=== PATIENT | female | born 1965 | race African-American/Black ===

== ENCOUNTER 2019-10-02 11:14 | Inpatient (IN) | payer OTHER ==
[~2019-10-02] VITALS: Ht 165.1 cm; Wt 114.8 kg
[2019-10-02 11:26] VITALS: BP 120/80
--- NOTE | 2019-10-02 11:40 | NUR ---
PT C/O WOUND TO LEFT BREAST WITH PAIN AND YELLOWISH DRAINAGE X 1 MONTH. PT REPORTS HAVING LEFT BREAT CANCER BUT HAVEN'T RECEIVED CHEMOTHERAPY YET. DENIES FEVER, CHILLS, OR OTHER DISCOMFORTS AT THIS TIME. PATIENT STATES PAIN OF 10/10 AT THIS TIME; VSS; PATIENT POSITIONED FOR COMFORT; HOB ELEVATED; BEDRAILS UP X1; BED DOWN. ER MD MADE AWARE OF PT STATUS. FAMILY MEMBER IS AT BEDSIDE.
--- NOTE | 2019-10-02 12:46 | NUR ---
PT REFUSES ALL NO BLOOD TRANSFUSIONS DUE TO HINDU REASONS.
[2019-10-02] MEDS ORDERED: GLIM2TAB PO (12:49)
[2019-10-02] MEDS ORDERED: COLC0.6C PO (12:49)
[2019-10-02] MEDS ORDERED: NIFE90TE4 PO (12:49)
[2019-10-02] MEDS ORDERED: HYDR2TAB6 PO (12:49)
[2019-10-02] MEDS ORDERED: FEBU80TA PO (12:49)
[2019-10-02] MEDS ORDERED: LID5T TP (12:49)
[2019-10-02] MEDS ORDERED: HYDR-39 PO (12:49)
--- NOTE | 2019-10-02 13:03 | NUR ---
PT HAS RIGHT SUPRACLAVICULAR PORTACATH AND SKIN IS INTACT.
[2019-10-02 13:10] LABS: PROTHROMBIN TIME 11.1 secs (10.8-13.4)
[2019-10-02 13:12] LABS: BASOPHILS # (AUTO) 0.1 K/uL (0.00-0.22); BASOPHILS % (AUTO) 0.6 % (0.0-2.0); HEMATOCRIT 26.6 % (36-48); HEMOGLOBIN 8.1 g/dL (12.0-16.0); LYMPHOCYTES # (AUTO) 1.6 K/uL (2.5-16.5); LYMPHOCYTES % (AUTO) 9.5 % (20.5-51.1); MEAN CORPUSCULAR HEMOGLOBIN 25 pg (27-31); MEAN CORPUSCULAR HGB CONC 31 g/dL (33-37); MONOCYTES # (AUTO) 1.5 K/uL (0.8-1.0); MONOCYTES % (AUTO) 8.7 % (1.7-9.3); NEUTROPHILS # (AUTO) 13.7 K/uL (1.8-7.7); NEUTROPHILS % (AUTO) 81.2 % (42.2-75.2); PLATELET COUNT (AUTO) 358 K/uL (140-450); RED BLOOD CELL COUNT(AUTO) 3.32 MIL/uL (4.20-5.40); WHITE BLOOD COUNT (AUTO) 16.8 K/uL (4.8-10.8)
[2019-10-02 13:17] LABS: ALBUMIN 2.5 g/dL (3.4-5.0); ANION GAP 15.7 (8-16); CARBON DIOXIDE 23.2 mmol/L (21-32); CREATININE 1.3 mg/dL (0.6-1.3); POTASSIUM 3.9 mmol/L (3.5-5.1); TOTAL BILIRUBIN 0.5 mg/dL (0.0-1.0)
[2019-10-02 15:05] VITALS: BP 115/76
--- NOTE | 2019-10-02 15:05 | NUR ---
PT BROUGHT IN [facility] FROM ER ACCOMPANIED BY ER NURSE KLAUDIA. DAUGHTER WILBER MEADE AT BEDSIDE. PT SETTLED INTO BED AND POSITIONED PT COMFORTABLY. RESPIRATIONS EVEN AND UNLABORED ON RA WITH NO SOB OR RESPIRATORY DISTRESS. PT DENIED SOB, PAIN, AND NAUSEA AT THIS TIME. NO SIGNS OF DISTRESS NOTED. R SUPRACLAVICULAR PROTACATH NOTED, CLEAN AND DRY, NOT INFUSING THIS TIME. L BREAST WOUND NOTED, COVERED WITH DRESSING, CLEAN AND DRY. PATIENT IS CONTINENT AND ABLE TO USE BEDSIDE COMMODE WITH ASSISTANCE. PT IS UNABLE TO AMBULATE AND USE WHEELCHAIR AT HOME. ORIENTED PT AND DAUGHTER WILBER TO THE ROOM, DEMONSTRATED ON HOW TO USE THE CALL LIGHT, BED REMOTE, TV, LIGHTS, TELEPHONE, AND PT VERBALIZED OK. UPDATED BOARD. VITAL SIGNS TAKEN AND RESULTED IN: T-97.3, SPO2- 98%, RR-17, HR-112, BP-115/76, PAIN 0. MRSA NARES COLLECTED. ENDS DOWN CHECKER IS ASSISTING PT TO CHANGE INTO YELLOW GOWN, SOCK. AND WRIST BAND. APPLIED ALLERGY RED ARM BAND. PATIENT IS AWAKE AND TALKING TO DAUGHTER AT BEDSIDE. SAFETY MEASURES IN PLACE. FALL RISK PROTOCOL INITIALED AND BED ALARM ACTIVATED. INSTRUCTED PT AND DAUGHTER WILBER TO USE THE CALL LIGHT FOR ANY ASSISTANCE AND BOTH AWARE.
--- NOTE | 2019-10-02 15:05 | NUR ---
Patient will be admitted to care of breast CA. Admited to Med-surg. Will go to room 120B. Belongings list completed. Report to RAMIRO Brush.
--- NOTE | 2019-10-02 15:40 | NUR ---
OBTAINED PROCEDURE CONSENT, PATIENT WAS AWARE OF PROCEDURE AND WILL BE NPO AFTER MIDNIGHT. PT STATED "I DO NOT WANT ANY BLOOD TRANSFUSION AND THE DOCUMENT IS ALSO IN MY CHART." WILL ENDORSED INFORMATION TO ONCOMING SHIFT NURSE WELL. DAUGHTER IS BY BEDSIDE. NO SIGNS OF DISTRESS NOTED. SAFETY MEASURES IN PLACE. BED IN LOW POSITION AND CALL LIGHT WITHIN REACH. INSTRUCTED PT TO USE THE CALL LIGHT FOR ANY ASSISTANCE AND PT AWARE.
--- NOTE | 2019-10-02 15:56 | NUR ---
DC PLANNING 54 YRS OLD FEMALE PT WAS ADMITTED FROM HOME WITH A DX OF BREAST CA . PT HAS A HX OF BREAST CA WAS RECEIVING A TREATMENT AT [facility]. DR SALGADO CONSULTED FOR POSSIBLE MASTECTOMY AND REPRODUCTION MACHINE LOADER CONSULT FOR PRE-OP EVAL DC PLAN TO GO HOME PER MD RECOMMENDATION. CM TO FOLLOW Addendum: 10/03/19 at 1144 by Tessa Gutierrez CM DC PLANNING SEEN BY DR SALGADO, SCHEDULE SURGERY FOR LEFT BREAST MASTECTOMY IN THE AFTERNOON DR ROSE(REPRODUCTION MACHINE LOADER ) TO SEE PT FOR CARDIAC SURGERY . CM TO FOLLOW. Addendum: 10/03/19 at 1631 by Tessa Gutierrez CM DC PLANNING F/U APPOINTMENT MADE WITH PCP DR LOZANO, [id number] [phone] [address]ESS [address] [place] [address] ON OCT 29, 2019 AT 2:30 PM APPOINTMENT REMINDER GIVEN TO THE PATIENT.
--- NOTE | 2019-10-02 16:15 | NUR ---
ASSESSED WOUND ON L BREAST. CLEANSED WOUND WITH NS, PAD DRY AND APPLIED ABD AND GAUZE, SECURED WITH PAPER TAPE. PT TOLERATED WELL. WOUND CARE ED PROVIDED AND PT VERBALIZED UNDERSTANDING. PT AWAKE AND TALKING TO DAUGHTER WILBER AT BEDSIDE. NO SIGNS OF DISTRESS NOTED.
--- NOTE | 2019-10-02 17:03 | NUR ---
PT IS IN ECHOCARDIOGRAM AND KRISTAN ABBASI IS BY BEDSIDE. NO SIGNS OF DISTRESS NOTED. DAUGHTER WILBER IS ALSO BY BEDSIDE. SAFETY MEASURES IN PLACE.
--- NOTE | 2019-10-02 17:20 | NUR ---
RECEIVED CALL FROM DR. ESSENCE JONES WITH THE FOLLOWING ORDERS: 1800 [address], NPO AFTER MIDNIGHT, ACCUCHECK ACHS, VANCOMYCIN PHARMACY TO DOSE, ZOSYN 3.475 IV Q8H, TYLENOL 1600 MG PRN Q4H, CBC AND CHEM 7 IN AM, IV HALF NS 85ML/HR TO START AT MIDNIGHT. REPEATED ORDER BACK TO [facility]ERT AND CONFIRMED. Addendum: 10/02/19 at 1746 by Brittanie Tamayo RN DID NOT ORDER TYLENOL, PT IS ALLERGIC
[2019-10-02] MEDS ORDERED: VANCOMYCIN PER PHARMACY MC SCH (17:30)
[2019-10-02] MEDS: VANCOMYCIN 1,000 MG in DEXTROSE 5% 250 ML IV SCH (19:05)
--- NOTE | 2019-10-02 19:05 | NUR ---
PT RESTING IN BED WITH FAMILY AT BEDSIDE. ADMINISTERED MEDICATION PRESCRIBED PER MD ORDER. PT TOLERATED WELL. MEDICATION EDUCATION PERFORMED. PT UNDERSTOOD AND COULD TEACH BACK. NO COMPLICATIONS OR CONCERNS AT THIS TIME. SAFETY MEASURES IN PLACE. WILL CONTINUE TO MONITOR.
--- NOTE | 2019-10-02 19:21 | NUR ---
ENDORSED PT AT BEDSIDE TO TRANSACTIONAL ATTORNEY NURSE FOR CONTINUITY OF CARE. PT AWAKE AND TALKING TO VISITORS AND FAMILY AT BEDSIDE. NO SIGNS OF DISTRESS NOTED. PT IS IN STABLE CONDITION. SAFETY MEASURES IN PLACE.
--- NOTE | 2019-10-02 19:30 | NUR ---
RECEIVED BEDSIDE REPORT FROM AM SHIFT RN ROXANNE, FOR PT'S CONTINUITY OF CARE. PT IS LYING DOWN IN BED, WITH FAMILY MEMBERS AT BEDSIDE, ON ROOM AIR, HAS A ALLERGY MASK ON, HAS RIGHT SUPRACLAVICULAR PORTACATH WITH NS AT 85ML/HR, ON NEUTROPENIC PRECAUTION, DENIES ANY PAIN AT THIS TIME. EXPLAINED TO PT AND FAMILY MEMBERS THE OILER BANDER ROUTINE, AND THEY VERBALIZED UNDERSTANDING. SAFETY MEASURES ARE IN PLACE, AND CALL LIGHT IS WITHIN REACH. WILL MONITOR PT THROUGHOUT SHIFT.
[2019-10-02] MEDS: BLOOD GLUCOSE MONITORING 1 DEV DEV FS SCH (21:00)
--- NOTE | 2019-10-02 21:00 | NUR ---
BLOOD GLUCOSE CHECKED AND CHARTED, NO COVERAGE NEEDED. ASSISTED PT TO THE BSC. PT TOLERATED ACTIVITY WELL. PT'S NEEDS ARE MET. WILL CONTINUE TO MONITOR PT.
[2019-10-02] MEDS: PIPERACILLIN/TAZOBACTAM 3.375 GM in DEXTROSE 5% 50 ML IV SCH (22:00)
--- NOTE | 2019-10-02 22:00 | NUR ---
ADMINISTERED SCHEDULED IVF AND IVPB ABX ORDERED. PT AWAKE, LYING IN BED, DENIES PAIN AT THIS TIME. WILL CONTINUE TO MONITOR PT.
[2019-10-03] VITALS: BP 134/87
[2019-10-03] MEDS ORDERED: NACL 0.45% 1,000 ML IV SCH
--- NOTE | 2019-10-03 | NUR ---
VS CHECKED AND CHARTED. PT ASLEEP WITH NO SIGNS OF DISTRESS. WILL CONTINUE TO MONITOR PT.
--- NOTE | 2019-10-03 01:45 | NUR ---
ASSISTED PT TO BSC. PT TOLERATED ACTIVITY WELL. COLLECTED URINE AND SENT TO LAB. PT'S NEEDS MET. WILL CONTINUE TO MONITOR PT.
[2019-10-03 02:59] LABS: APPEARANCE,URINE CLOUDY (CLEAR); BILIRUBIN,URINE 1+ (NEGATIVE); BLOOD, URINE 3+ (NEGATIVE); COLOR,URINE YELLOW (YELLOW); LEUKOCYTE ESTERASE ,URINE NEGATIVE (NEGATIVE); NITRITE, URINE NEGATIVE (NEGATIVE); UGLUCOSE TRACE (NEGATIVE)
--- NOTE | 2019-10-03 04:00 | NUR ---
PT LYING DOWN ASLEEP WITH NO SIGNS OF DISTRESS.
[2019-10-03 04:17] LABS: URINE AMORPHOUS URATE 4+ /HPF (None Seen); WBC,URINE 0-5 /HPF (0-5)
[2019-10-03] MEDS: PIPERACILLIN/TAZOBACTAM 3.375 GM in DEXTROSE 5% 50 ML IV SCH ×3 (05:53→20:14)
--- NOTE | 2019-10-03 05:55 | NUR ---
BLOOD SUGAR CHECKED AND CHARTED. ADMINISTERED SCHEDULED IV ABX ORDERED. PT REFUSED AM LAB DRAW. WILL CONTINUE TO MONITOR PT.
[2019-10-03] MEDS: BLOOD GLUCOSE MONITORING 1 DEV DEV FS SCH ×4 (05:57→21:12)
--- NOTE | 2019-10-03 07:00 | NUR ---
ADMINISTERED SCHEDULED IV ABX ORDERED. WILL ENDORSE TO AM SHIFT RN FOR PT'S CONTINUITY OF CARE. PT DENIES ANY PAIN AT THIS TIME. INFORMED PT AND DAUGHTER ABOUT SURGERY TIME.
[2019-10-03] MEDS: VANCOMYCIN 1,000 MG in DEXTROSE 5% 250 ML IV SCH ×2 (07:02→18:09)
--- NOTE | 2019-10-03 07:12 | NUR ---
RECEIVED BEDSIDE REPORT FROM PHP LAMP DEVELOPER NURSE, PT IS ASLEEP, NO S/S OF ACUTE DISTRESS, DAUGHTER IS AT BEDSIDE. PT IS WEARING AN ANTI-ALLERGY MASK. ON ROOM AIR. L BREAST GAUZE DRESSING IS INTACT. PT IS NPO, TO UNDERGO SIMPLE MASTECTOMY TODAY AT 14:50. R SUPRACLAVICULAR PORTACATH NOTED, INFUSING 1/2 NS 85 ML/HR. FALL PRECAUTIONS IN PLACE. NEUTROPENIC ISOLATION PRECAUTIONS IN PLACE. CALL LIGHT IS WITHIN REACH. WILL CONTINUE TO MONITOR.
[2019-10-03 08:00] VITALS: BP 129/80
[2019-10-03 08:50] LABS: BASOPHILS % (AUTO) 0.4 % (0.0-2.0); EOSINOPHILS % (AUTO) 0.1 % (0.0-4.0); HEMATOCRIT 24.4 % (36-48); HEMOGLOBIN 7.7 g/dL (12.0-16.0); LYMPHOCYTES # (AUTO) 1.3 K/uL (2.5-16.5); LYMPHOCYTES % (AUTO) 11.5 % (20.5-51.1); MEAN CORPUSCULAR HEMOGLOBIN 25 pg (27-31); MEAN CORPUSCULAR HGB CONC 31 g/dL (33-37); MEAN CORPUSCULAR VOLUME 78.8 fL (80-94); MONOCYTES # (AUTO) 1.3 K/uL (0.8-1.0); MONOCYTES % (AUTO) 11.4 % (1.7-9.3); NEUTROPHILS # (AUTO) 8.7 K/uL (1.8-7.7); NEUTROPHILS % (AUTO) 76.6 % (42.2-75.2); PLATELET COUNT (AUTO) 357 K/uL (140-450); RED CELL DISTRIBUTION WIDTH 22.3 % (11.6-13.7); WHITE BLOOD COUNT (AUTO) 11.3 K/uL (4.8-10.8)
[2019-10-03 09:01] LABS: ANION GAP 15.5 (8-16); CARBON DIOXIDE 22.8 mmol/L (21-32); CREATININE 1.6 mg/dL (0.6-1.3); POTASSIUM 4.3 mmol/L (3.5-5.1)
--- NOTE | 2019-10-03 10:15 | NUR ---
PATIENT HAS BEEN SCREENED AND CATEGORIZED HIGH NUTRITION RISK. PATIENT WILL BE SEEN WITHIN 1-2 DAYS OF ADMISSION. 10/03/19-10/04/[address]
[2019-10-03] MEDS: DEXT 5% /NACL 0.9% 1,000 ML IV SCH ×2 (10:25→22:11)
--- NOTE | 2019-10-03 10:45 | NUR ---
Wound care consult pending, pt. schedule to have mastectomy procedure later today. Pt. is alert and oriented x4 and agreeable. Primary RN notified.
[2019-10-03] MEDS ORDERED: MEPERIDINE 50 MG/ML SYR ONE (12:59)
[2019-10-03] MEDS ORDERED: fentaNYL 0.05 MG/ML VIAL ONE (12:59)
[2019-10-03] MEDS ORDERED: MIDAZOLAM 2 MG/2 ML VIAL ONE (12:59)
[2019-10-03] MEDS: GAUZE TP SCH (13:00)
--- NOTE | 2019-10-03 13:00 | NUR ---
PT TAKEN OFF UNIT FOR MASTECTOMY
[2019-10-03] MEDS ORDERED: SEVOFLURANE 250 ML BTL INH ONE (13:10)
[2019-10-03] MEDS ORDERED: ONDANSETRON 4 MG/2 ML VIAL ONE (13:10)
[2019-10-03] MEDS ORDERED: DEXAMETHASONE 4 MG/ML VIAL ONE (13:10)
[2019-10-03] MEDS ORDERED: ceFAZolin 1,000 MG VIAL ONE ×2 (13:22→14:11)
[2019-10-03] MEDS: NACL 0.9% 1,000 ML IV SCH ×2 (14:02→22:22)
[2019-10-03] MEDS ORDERED: BLOOD GLUCOSE MONITORING 1 DEV DEV FS SCH (14:05)
[2019-10-03] MEDS ORDERED: ONDANSETRON 4 MG/2 ML VIAL IVP PRN ×2 (14:05→14:50)
[2019-10-03] MEDS ORDERED: MEPERIDINE 25 MG/ML SYR IVP PRN (14:05)
[2019-10-03] MEDS ORDERED: diphenhydrAMINE 50 MG/ML VIAL IVP PRN (14:05)
[2019-10-03] MEDS: BUPIVACAINE-MPF 0.5% 30 ML VIAL INJ ONE ×2 (14:13→14:35)
[2019-10-03] MEDS ORDERED: ACETAMINOPHEN 325 MG TAB PO PRN (14:50)
[2019-10-03] MEDS ORDERED: HYDROmorphone 1 MG/ML AMP IVP PRN (15:00)
--- NOTE | 2019-10-03 15:35 | NUR ---
PT IS BACK FROM SURGERY. DAUGHTER IS AT BEDSIDE. PT IS ASLEEP, NO S/S OF DISTRESS. VS ARE STABLE. PT WAS PUT ON TELEMETRY PER DR SALGADO ORDER. Addendum: 10/03/19 at 1609 by Gabby Haywood RN L BREAST MASTECTOMY INCISION IS COVERED BY ABD DRESSING AND ABDOMINAL BINDER. PT ALSO HAS A REA DRAIN, COLLECTING DARK RED DRAINAGE.
[2019-10-03 16:00] VITALS: BP 116/69
--- NOTE | 2019-10-03 18:42 | NUR ---
18 MLS OF BLOODY DRAINAGE EMPTIED FROM PT'S REA DRAIN.
--- NOTE | 2019-10-03 19:24 | NUR ---
ENDORSED PT TO METAL DRAWER NURSE IN STABLE CONDITION.
--- NOTE | 2019-10-03 19:30 | NUR ---
RECEIVED BEDSIDE REPORT FROM AM SHIFT RN SHA, FOR PT'S CONTINUITY OF CARE. PT IS S/P LEFT BREAST MASTECTOMY. AAOX4, ON ROOM AIR, HAS RIGHT SUPRACLAVICULAR PORTACATH, HAS LEFT BREAST DRESSING AND CHEST BINDER FOR SX INCISION THAT'S DRY AND INTACT WITH REA DRAIN IN PLACE, DENIES ANY PAIN AND DISCOMFORT. REORIENTED PT TO VETERAN APPEALS REVIEWER ROUTINE, AND CARDIAC TELE ROUTINE, PT VERBALIZED UNDERSTANDING. SAFETY MEASURES IN PLACE. CALL LIGHT IS WITHIN REACH. PT'S NEEDS MET. WILL MONITOR PT THROUGHOUT SHIFT.
[2019-10-03 20:00] VITALS: BP 116/69
--- NOTE | 2019-10-03 20:14 | NUR ---
VS CHECKED AND CHARTED. ADMINISTERED SCHEDULED IV ABX ORDERED. BLOOD GLUCOSE CHECKED AND CHARTED. PT REQUESTED AND PROVIDED POPSICLE, DENIES ANY PAIN AT THIS TIME. PT'S NEEDS MET. WILL CONTINUE TO MONITOR PT.
--- NOTE | 2019-10-03 20:40 | NUR ---
PAGED MARKETING DEVELOPMENT SPECIALIST FOR BLOOD GLUCOSE VALUE. RECEIVED A CALL FROM DR. HOWE AND ORDERED HUMALOG SLIDING SCALE PER PROTOCOL, AND RESTART METFORMIN IN AM. WILL CARRY OUT ORDER. Addendum: 10/03/19 at 2201 by Shellie Moreira RN MEDICATION CORRECTION: PT STATED SHE TAKES METFORMIN, PER MED RECON AND DAUGHTER, PT TAKES GLIMEPIRIDE DAILY WITH BREAKFAST. ORDER CARRIED OUT.
[2019-10-03] MEDS ORDERED: INSULIN LISPRO SLIDING SCALE 100 UNITS/ML VIAL SUBQ PRN (21:00)
--- NOTE | 2019-10-03 21:30 | NUR ---
PT REFUSED INSULIN SUBQ PER SLIDING SCALE. EXTENSIVE PT TEACHING GIVEN REGARDING BENEFITS AND SIDE EFFECTS OF INSULIN. PT STATES SHE DOES NOT WANT TO TAKE SOMETHING SHE HAS NOT TAKEN BEFORE AND DOES NOT KNOW HOW HER BODY WILL REACT TO IT. SOLDER CREAM MAKER AWARE. HELPED PT IN DEDUCING ADDITIONAL CAUSE OF HIGH BLOOD GLUCOSE, PT AWARE WHAT MIGHT HAVE CAUSED IT AND WILL MAKE SOME CHANGES WITH THE DIET. PT STATED SHE WILL JUST WAIT UNTIL MORNING TO RECEIVE HER AM GLIMEPRIDE.
[2019-10-04] VITALS: BP 116/74
--- NOTE | 2019-10-04 00:15 | NUR ---
VS CHECKED AND CHARTED. PT WAS ASLEEP, WOKE UP AND DENIES ANY PAIN OR DISCOMFORT. REASSESSED REA DRAIN, DRAINING WITH SMALL AMOUNT OF SEROUS DRAINAGE. DRESSING DRY AND INTACT. WILL CONTINUE TO MONITOR PT.
--- NOTE | 2019-10-04 02:40 | NUR ---
ASSISTED PT TO BSC, VOIDED X 1. PT TOLERATED ACTIVITY WELL. CHANGED LINENS. MADE PT COMFORTABLE. ADMINISTERED NEW IVF ORDERED. WILL CONTINUE TO MONITOR PT.
[2019-10-04] MEDS: NACL 0.9% 1,000 ML IV SCH (02:45)
[2019-10-04 04:00] VITALS: BP 120/81
[2019-10-04] MEDS: PIPERACILLIN/TAZOBACTAM 3.375 GM in DEXTROSE 5% 50 ML IV SCH ×3 (04:44→21:40)
--- NOTE | 2019-10-04 04:45 | NUR ---
ADMINISTERED SCHEDULED IV ABX ORDERED. PT DENIES ANY PAIN. DENIES ANY NEEDS AT THIS TIME. WILL CONTINUE TO MONITOR PT.
[2019-10-04] MEDS: BLOOD GLUCOSE MONITORING 1 DEV DEV FS SCH ×4 (05:44→21:39)
[2019-10-04] MEDS: VANCOMYCIN 1,000 MG in DEXTROSE 5% 250 ML IV SCH (06:34)
--- NOTE | 2019-10-04 06:34 | NUR ---
ADMINISTERED SCHEDULED IV ABX ORDERED. PT RESTING COMFORTABLY IN BED, NO SIGNS OF DISTRESS. REA DRAIN 20ML OUT. PT INQUIRING ABOUT EVERYDAY AM LAB DRAW, EXPLAINED TO PT THE REASON AND IMPORTANCE OF LAB VALUES. ALSO EXPLAINED THAT PT COULD REFUSE LAB DRAW. PT VERBALIZED UNDERSTANDING. WILL ENDORSE TO AM SHIFT RN FOR PT'S CONTINUITY OF CARE.
[2019-10-04 07:06] LABS: BASOPHILS % (AUTO) 0.2 % (0.0-2.0); EOSINOPHILS % (AUTO) 0.1 % (0.0-4.0); HEMATOCRIT 20.7 % (36-48); LYMPHOCYTES # (AUTO) 1.2 K/uL (2.5-16.5); LYMPHOCYTES % (AUTO) 6.8 % (20.5-51.1); MEAN CORPUSCULAR HEMOGLOBIN 25 pg (27-31); MEAN CORPUSCULAR HGB CONC 31 g/dL (33-37); MEAN CORPUSCULAR VOLUME 79.3 fL (80-94); MONOCYTES # (AUTO) 1.4 K/uL (0.8-1.0); MONOCYTES % (AUTO) 8.1 % (1.7-9.3); NEUTROPHILS # (AUTO) 14.7 K/uL (1.8-7.7); NEUTROPHILS % (AUTO) 84.8 % (42.2-75.2); PLATELET COUNT (AUTO) 311 K/uL (140-450); RED BLOOD CELL COUNT(AUTO) 2.61 MIL/uL (4.20-5.40); RED CELL DISTRIBUTION WIDTH 22.7 % (11.6-13.7); WHITE BLOOD COUNT (AUTO) 17.3 K/uL (4.8-10.8)
--- NOTE | 2019-10-04 07:10 | NUR ---
CRITICAL LAB HGB 6.4 HCT 20.7. PT REFUSE BLOOD TRANSFUSION REQUEST. MELLO DEAN. TORB IV IRON, PHARMACY TO DOSE.
--- NOTE | 2019-10-04 07:10 | NUR ---
RECEIVED CALL FROM SAVI (LAB) FOR CRITICAL LAB VALUE. H&H HGB - 6.4; HCT 20.7. ENDORSED TO AM SHIFT RAMIRO HOLLAND. PAGED NARRATIVE WRITER MD (DR. HOWE) FOR REPORT.
[2019-10-04 07:12] LABS: HEMOGLOBIN 6.4 g/dL (12.0-16.0)
--- NOTE | 2019-10-04 07:15 | NUR ---
RECEIVED REPORT FROM ELECTRICIAN MANAGER NURSE FOR CONTINUITY OF CARE. PT IN STABLE CONDITION. RESPIRATIONS EVEN AND UNLABORED, ROOM AIR. IV ACCESS INTACT AND PATENT. SAFETY MEASURES IN PLACE. BED IN LOW POSITION. BED ALARM ON. CALL LIGHT AT BEDSIDE. WILL CONTINUE TO MONITOR.
[2019-10-04 07:28] LABS: ANION GAP 15.6 (8-16); CARBON DIOXIDE 21.4 mmol/L (21-32); CREATININE 1.7 mg/dL (0.6-1.3); TOTAL BILIRUBIN 0.4 mg/dL (0.0-1.0)
[2019-10-04 08:00] VITALS: BP 131/86
[2019-10-04] MEDS ORDERED: traMADol 50 MG TAB PO PRN (08:30)
[2019-10-04] MEDS: SODIUM FERRIC GLUCONATE 125 MG in NACL 0.9% 100 ML IV SCH (09:15)
[2019-10-04] MEDS: GLIMEPIRIDE 2 MG TAB PO SCH (09:15)
--- NOTE | 2019-10-04 09:15 | NUR ---
GAVE ORDERED DUE MEDICATIONS AT THIS TIME. PT TOLERATED WELL. BED IN LOW POSITION. BED ALARM ON. CALL LIGHT AT BEDSIDE. WILL CONTINUE TO MONITOR.
[2019-10-04] MEDS: DEXT 5% /NACL 0.9% 1,000 ML IV SCH ×2 (09:31→21:43)
--- NOTE | 2019-10-04 11:33 | NUR ---
PT TALKING WITH FAMILY AT BEDSIDE. PT IN STABLE CONDITION. BED IN LOW POSITION. BED ALARM ON. CALL LIGHT AT BEDSIDE. WILL CONTINUE TO MONITOR.
[2019-10-04 12:00] VITALS: BP 126/82
--- NOTE | 2019-10-04 13:40 | NUR ---
GAVE ORDERED DUE MEDICATIONS AT THIS TIME. PT TOLERATED WELL. BED IN LOW POSITION. BED ALARM ON. CALL LIGHT AT BEDSIDE. WILL CONTINUE TO MONITOR.
[2019-10-04] MEDS: GAUZE TP SCH (13:41)
--- NOTE | 2019-10-04 15:09 | NUR ---
MATY MARY AT BEDSIDE TO ASSESS PT. VERBAL ORDER DRESSING CHANGE 10/05. PT IN STABLE CONDITION. WILL CONTINUE TO MONITOR.
[2019-10-04 16:00] VITALS: BP 120/79
--- NOTE | 2019-10-04 16:50 | NUR ---
BLOOD SUGAR 66 GAVE APPLE JUICE CHECKED BLOOD SUGAR 15MIN 92. PT IN STABLE CONDITION.
--- NOTE | 2019-10-04 19:15 | NUR ---
GAVE REPORT TO LOGGER DRIVING HORSES NURSE FOR CONTINUITY OF CARE. PT IN STABLE CONDITION.
--- NOTE | 2019-10-04 19:20 | NUR ---
RECEIVED BEDSIDE REPORT FROM AM SHIFT RAMIRO HOLLAND FOR PT'S CONTINUITY OF CARE. PT IS LYING DOWN ASLEEP WITH NO SIGNS OF DISTRESS. PT IS ON SALINE LOCK, ON ROOM AIR, TRANSFERRED TO MS. SAFETY MEASURES IN PLACE. WILL MONITOR PT THROUGHOUT SHIFT.
--- NOTE | 2019-10-04 21:40 | NUR ---
ADMINISTERED SCHEDULED IV ABX ORDERED. INFORMED PT ABOUT AM LAB DRAW, PT NOT TOO HAPPY. EXPLAINED TO PT THE IMPORTANCE AND REASON FOR LAB DRAW. PT VERBALIZED UNDERSTANDING. PT STATES SHE FEELS TIRED AND WOULD LIKE TO SLEEP/REST MORE. WILL CONTINUE TO MONITOR PT.
[2019-10-05] VITALS: BP 112/61
--- NOTE | 2019-10-05 01:00 | NUR ---
VS CHECKED AND CHARTED. PT LYING DOWN ASLEEP, WOKE UP AND DENIES ANY PAIN OR DISCOMFORT. DRESSING DRY AND INTACT. MINIMAL DRAINAGE NOTED IN REA DRAIN.
--- NOTE | 2019-10-05 03:30 | NUR ---
MADE ROUNDS. PT LYING DOWN COMFORTABLY WITH NO SIGNS OF DISTRESS. WILL CONTINUE TO MONITOR PT.
--- NOTE | 2019-10-05 05:50 | NUR ---
ADMINISTERED SCHEDULED IV ABX ORDERED. BLOOD GLUCOSE CHECKED AND CHARTED, RESULT OF 70, OFFERED PT SOME SNACKS AND JUICE. PT REFUSED AM LAB DRAW STATES ARM IS VERY SORE. WILL ENDORSE TO AM SHIFT RN FOR PT'S CONTINUITY OF CARE.
[2019-10-05] MEDS: PIPERACILLIN/TAZOBACTAM 3.375 GM in DEXTROSE 5% 50 ML IV SCH ×2 (05:54→12:21)
--- NOTE | 2019-10-05 07:27 | NUR ---
RECEIVED REPORT FROM SECURITY INSTALLER NURSE. PATIENT LYING DOWN IN BED SLEEPING, AROUSABLE BY VOICE. NO DISTRESS NOTED. DENIES ANY PAIN. AAOX4, CALM, COOPERATIVE, SKIN COLOR APPROPRIATE TO ETHNICITY, WARM TO TOUCH. HAS LEFT BREAST S/P MASTECTOMY, FITZ INTACT AND NIKOLAI. REA DRAINAGE NOTED ON LEFT BREAST. HAS RIGHT UPPER JEHT-C-NHUMHOSH NOTED, ALREADY ACCESSED AND INFUSING IVF PER MD ORDERS. REVIEWED PLAN OF CARE WITH PATIENT. PATIENT VERBALIZED UNDERSTANDING. SAFETY MEASURES IN PLACE, CALL LIGHT WITHIN REACH. WILL CONTINUE TO MONITOR.
[2019-10-05] MEDS: BLOOD GLUCOSE MONITORING 1 DEV DEV FS SCH ×3 (07:30→16:47)
[2019-10-05 08:00] VITALS: BP 114/75
[2019-10-05] MEDS: GLIMEPIRIDE 2 MG TAB PO SCH (09:00)
--- NOTE | 2019-10-05 09:09 | NUR ---
(10/05/19) RD INITIAL ASSESSMENT COMPLETED PLEASE REFER TO NUTRITION ASSESSMENT UNDER CARE ACTIVITY FOR ESTIMATED NUTRITIONAL NEEDS. RD RECOMMENDATIONS: 1. CONTINUE ON REGULAR DIET TOLERATED. 2. IF PTS PO INTAKES DO NOT IMPROVE TO > 50%, RDN TO CONSIDER ADDING DHEALTH SHAKES WITH MEALS (4-OZ, TID) WHICH WILL PROVIDE 600 KCAL AND 21 GM PROTEIN TO BETTER MEET NEEDS. 3. RD WILL F/U 2-3 DAYS; HIGH RISK. FRAN ARANDA, , RDN
[2019-10-05] MEDS: DEXT 5% /NACL 0.9% 1,000 ML IV SCH (09:29)
[2019-10-05] MEDS: SODIUM FERRIC GLUCONATE 125 MG in NACL 0.9% 100 ML IV SCH (09:56)
--- NOTE | 2019-10-05 10:05 | NUR ---
PATIENT LYING DOWN IN BED, LEFT REA DRAIN IN PLACE, DRESSING CHANGED PER MD ORDERS. DAUGHTER AT BEDSIDE. SCHEDULED MEDICATIONS DUE GIVEN, WILL CONTINUE TO MONITOR.
[2019-10-05 11:24] LABS: WHITE BLOOD COUNT (AUTO) 13.5 K/uL (4.8-10.8)
[2019-10-05 11:25] LABS: RED BLOOD CELL COUNT(AUTO) 2.44 MIL/uL (4.20-5.40)
[2019-10-05 11:26] LABS: HEMOGLOBIN 6.2 g/dL (12.0-16.0)
[2019-10-05 11:27] LABS: HEMATOCRIT 19.4 % (36-48); MEAN CORPUSCULAR HEMOGLOBIN 25 pg (27-31); MEAN CORPUSCULAR HGB CONC 32 g/dL (33-37); MEAN CORPUSCULAR VOLUME 79.3 fL (80-94); PLATELET COUNT (AUTO) 350 K/uL (140-450)
[2019-10-05 11:28] LABS: BASOPHILS # (AUTO) 0.1 K/uL (0.00-0.22); BASOPHILS % (AUTO) 0.7 % (0.0-2.0); EOSINOPHILS # (AUTO) 0.2 K/uL (0-0.4); EOSINOPHILS % (AUTO) 1.2 % (0.0-4.0); LYMPHOCYTES # (AUTO) 1.8 K/uL (2.5-16.5); LYMPHOCYTES % (AUTO) 11.8 % (20.5-51.1); MONOCYTES # (AUTO) 1.6 K/uL (0.8-1.0); MONOCYTES % (AUTO) 10.1 % (1.7-9.3); NEUTROPHILS # (AUTO) 11.8 K/uL (1.8-7.7); NEUTROPHILS % (AUTO) 76.2 % (42.2-75.2)
[2019-10-05] MEDS: GAUZE TP SCH (12:28)
--- NOTE | 2019-10-05 12:29 | NUR ---
PATIENT SITTING IN BED WITH LUNCH TRAY IN FRONT. NO DISTRESS NOTED. SCHEDULED MEDICATIONS DUE GIVEN. WILL CONTINUE TO MONITOR.
--- NOTE | 2019-10-05 14:00 | NUR ---
DR. BARKER CALLED UNIT AND SPOKE WITH PATIENT REGARDING PROCRIT INJECTIONS TO HELP INCREASE H & H. PER PATIENT, PATIENT REFUSED PROCRIT INJECTIONS, DAUGHTER AT BEDSIDE ALSO TALKED WITH DR. BARKER. WILL CONTINUE TO MONITOR.
[2019-10-05 16:00] VITALS: BP 116/72
[2019-10-05] MEDS ORDERED: AMOX-999 PO (17:27)
[2019-10-05] MEDS ORDERED: TRAM50TA1 PO (17:30)
--- NOTE | 2019-10-05 17:56 | NUR ---
DISCHARGE INSTRUCTIONS PROVIDED TO PATIENT IN PREFERRED LANGUAGE OF [place]RAELI. PATIENT DAUGHTER AT BEDSIDE. INSTRUCTIONS ON NEW MEDICATION REGIMEN AND SIDE EFFECTS, FOLLOW-UP WITH ONCOLOGIST AND SURGEON, DIET REGIMEN, WOUND CARE MANAGEMENT REGIMEN. ANSWERED ALL OF PATIENT/FAMILY QUESTIONS REGARDING DISCHARGE. PATIENT/FAMILY VERBALIZED COMPLETE UNDERSTANDING. PATIENT TO FINISH EATING DINNER THEN TO GET DRESSED AND GATHER BELONGINGS. WILL CONTINUE TO MONITOR.
--- NOTE | 2019-10-05 19:05 | NUR ---
PATIENT ALL DRESSED AND READY TO GO. ALL BELONGINGS WITH PATIENT. PORTACATHETER INJECTION CAP REMOVED. PATIENT TOLERATED WELL. ESCORTED PATIENT DOWN TO LOBBY VIA WHEELCHAIR. PATIENT DISCHARGED AT THIS TIME TO HOME IN STABLE CONDITION.
== END 2019-10-05 19:39 | disposition home or self-care (01) | DRG 710 ==
LOC: MED 11:14 → MTU 13:42
PROVIDERS: ADMIT Internal Medicine Pulmonary Disease; ATTEND Internal Medicine Pulmonary Disease
PROC: 0HBU0ZZ Excision of Left Breast, Open Approach (ICD-10-PCS; principal; 2019-10-03 14:50)
DX: A41.9 Sepsis, unspecified organism (principal); C79.51 Secondary malignant neoplasm of bone; E66.01 Morbid (severe) obesity due to excess calories; C50.912 Malignant neoplasm of unspecified site of left female breast; Z68.41 Body mass index [BMI] 40.0-44.9, adult; E44.1 Mild protein-calorie malnutrition; D64.9 Anemia, unspecified; L08.9 Local infection of the skin and subcutaneous tissue, unspecified; S21.002A Unspecified open wound of left breast, initial encounter; X58.XXXA Exposure to other specified factors, initial encounter; Y93.89 Activity, other specified; Y92.89 Other specified places as the place of occurrence of the external cause; Y99.8 Other external cause status; E11.9 Type 2 diabetes mellitus without complications; I10 Essential (primary) hypertension; J45.909 Unspecified asthma, uncomplicated; M06.9 Rheumatoid arthritis, unspecified; Z51.5 Encounter for palliative care; Z92.21 Personal history of antineoplastic chemotherapy; Z88.5 Allergy status to narcotic agent; Z88.8 Allergy status to other drugs, medicaments and biological substances; Z96.642 Presence of left artificial hip joint
CPT/HCPCS: 36415; 71045; 80048; 80053; 80202; 81001; 81025; 82948; 85025; 85610; 86886; 86900; 86901; 87070; 87075; 87081; 87086; 87186; 87205; 88309; 88313; 88342; 93005; 99285; J0690; J1100; J2175; J2250; J2405; J2543; J2916; J3010; J3370; J3490; J7030; J7042; J7060; Q0092